=== PATIENT | male | born 1990 | race Caucasian/White ===

== ENCOUNTER 2020-06-07 05:58 | Emergency (ER) | payer SELFPAY ==
[~2020-06-07] VITALS: Ht 167.6 cm; Wt 59.0 kg
[2020-06-07] MEDS ORDERED: ATIVAN1 MG ORAL (06:09)
[2020-06-07] MEDS ORDERED: LITHIUM CARBON150 MG ORAL (06:10)
[2020-06-07] MEDS ORDERED: LORazepam 1mg tab ORAL ONE ×2 (06:15→07:00)
--- NOTE | 2020-06-07 06:20 | NUR ---
ED Nurse Note: Recieved pt BIBA with c/o increased anxiety from ativan withdrawls, pt is shaking with svere tremors and sweating, pt was seen at another facility tonight and was released, pt states they gave him valium and he needs ativan, pt also c/o intermittent hallucinations, denies homicidal or suicidal at this time but states when he does not recieve ativan he gets those thoughts, pt is calm and cooperative and thankful, denies chest pain, sob, fevers, cough or any other physical or mental s/s.
--- NOTE | 2020-06-07 06:31 | Emergency Room Report ---
History of Present Illness General Chief Complaint: Behavioral Complaint Source: Patient, EMS Present Illness HPI 29-year-old male history of bipolar disorder, history of anxiety currently takes Ativan, presents with feelings of restlessness, severity is moderate, constant aggravated by his lack of Ativan states he ran out 3 days ago severity is mild, patient denies any acute suicidal ideations no plan, no homicidal ideations, no acute complaints patient was evaluated at [facility] earlier today, was medically and psychiatrically cleared and discharged Allergies: Coded Allergies: No Known Allergies (Unverified , 06/07/20) COVID-19 Screening Contact w/high risk pt: No Experienced COVID-19 symptoms?: No COVID-19 Testing performed POLYMERIZATION OVEN TENDER: No Patient History Past Medical History: see triage record Social History: Reports: smoking Reviewed Nursing Documentation: PMH: Agreed; PSxH: Agreed Nursing Documentation-PMH Past Medical History: No History, Except For History Of Psychiatric Problem: Yes - Depression Review of Systems All Other Systems: negative except mentioned in HPI Physical Exam Vital Signs Date Time Temp Pulse Resp B/P (MAP) Pulse Ox O2 Delivery O2 Flow Rate FiO2 06/07/20 06:01 98.6 94 18 153/100 (117) 99 Room Air General Appearance: well appearing, no apparent distress Head: normocephalic, atraumatic ENT: hearing grossly normal, normal voice Neck: full range of motion, supple Respiratory: no respiratory distress, speaking full sentences Musculoskeletal: moves extm spontaneously Neurologic: alert, normal gait Psychiatric: mood/affect normal Skin: no rash Medical Decision Making Diagnostic Impression: Primary Impression: Behavioral disorder ER Course 29-year-old male presents with passive suicidality during the conversation patient was asking how to get a 5150 so I can be placed somewhere for the time being. Patient counseled that we cannot place 5150s for housing. Patient appears to be malingering while he does have depression/bipolar disorder that is being treated with lithium patient during the course of the conversation was asking how he could get housing. Additionally patient is requesting Ativan stating he ran out 3 days ago. cures report shows that he has a prescription that should have lasted him until the end of jun 06. Doubt emergent processes at this time patient was also medically and psychiatrically cleared at [facility] per patient. There may be a component of malingering patient was given 4 mg of Ativan to help him with his symptoms of anxiety which he felt better afterwards patient counseled that he cannot receive a prescription and was follow-up with his primary care physician. Reevaluation 7:35 AM Patient states he feels better after receiving 4 mg of Ativan and Valium from [facility] patient states he will refill his prescription for Ativan today. Patient denies any acute suicidality or homicidality Last Vital Signs Date Time Temp Pulse Resp B/P (MAP) Pulse Ox O2 Delivery O2 Flow Rate FiO2 06/07/20 06:15 94 18 153/100 99 06/07/20 06:01 98.6 Room Air Disposition: HOME, SELF-CARE Condition: Stable Referrals: [facility] Patient Instructions: Self-Destructive Behavior Additional Instructions: PLEASE FOLLOW-UP WITH YOUR PRIMARY CARE PHYSICIAN DR. Albina Cooper MD The patient was provided with discharge instructions, notified to follow-up with a primary care doctor and or specialist in the next 24-48 hours, and to return to the ED if they have worsening of their symptoms. Please note that this report is being documented using [employer] technology. This can lead to erroneous entry secondary to incorrect interpretation by the dictating instrument. Cy Aguirre MD Jun 07, 2020 06:31
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
[2020-06-07] MEDS ORDERED: chlordiazePOXIDE 25mg Cap ORAL ONE (07:45)
--- NOTE | 2020-06-07 07:45 | NUR ---
ED Nurse Note: pt now denying SI/HI/self harm. pt verbalizes resources given to him for SI/mental health/recovery programs and resources local to him. pt states he has a cell phone to call resources & a mode of transportation to get to location. pt verbalizes to followup with resources and primary doctor, and return if condition worsens. pt medically cleared by MD for eval. pt given daily medication, see emar.
[2020-06-07 07:54] VITALS: BP 136/93
--- NOTE | 2020-06-07 07:57 | NUR ---
ER DISCHARGE NOTE: Patient is cleared to be discharged per ERMD, pt is aox4, on room air, with stable vital signs. pt was given dc, pt was able to verbalize understanding, pt id band removed. pt is able to ambulate with steady gait. pt took all belongings. pt verbalizes to followup with external resources for behavioral health concerns. MD aware of pt concerns and cleared pt for discharge with plan for external resources and support.
== END 2020-06-07 07:59 | disposition home or self-care (01) ==
LOC: EDBD 05:58 → EMR 06:28
DX: F91.9 Conduct disorder, unspecified (principal); F32.9 Major depressive disorder, single episode, unspecified; F17.200 Nicotine dependence, unspecified, uncomplicated
CPT/HCPCS: 99282